=== PATIENT | female | born 1965 | race Caucasian/White ===

== ENCOUNTER 2016-06-15 14:45 | Emergency (ER) | payer MEDICARE, OTHER ==
[2006-03-13 08:37] VITALS: BP 119/79
[~2016-06-15] VITALS: Ht 162.6 cm; Wt 89.1 kg
[~2016-06-15 14:45] MED LIST: ADVAIR 250/28 DISKUS IH; ALDACTONE100 MG PO; ALDACTONE50 MG PO; AMBIEN 10MG10 MG PO; AMBIEN10 MG PO; AMLODIPINE10 MG PO; ATENOLOL50 MG PO; BENTYL 20MG TAB20 MG PO; BENTYL 20MG20 MG/TAB PO; BENTYL20 MG PO; CEFTIN 250250 MG/TAB PO; CEFTIN500 MG PO; CHLORPHENIRAMINE4 MG PO; CLOPIDOGREL; COLACE 100100 MG/CAP PO; COMBIVENT INH14.7 GM IH; COREG12.5 MG PO; COUMADIN 5MG5 MG/TAB PO; CYCLOBENZAPRINE10 MG PO; DAILY VITAMINS1 TAB PO; DESYREL 100MG100 MG PO; DESYREL 50MG50 MG PO; DETROL LA PO; DILANTIN 100MG100 MG PO; DULCOLAX10 MG RC; FIORICET 325 MG1 TA1 PO; FIORICET 325 MG1 TAB PO; FIORICET W/CODE1 CA1 PO; FLEXERIL 1010 MG/TAB PO; FORTAMET1000 MG PO; KEPPRA1000 MG PO; KEPPRA500 MG PO; KLOR-CON M2020 MEQ PO; LEVOTHYROXINE0.1 MG PO; LIDODERM PATCH TP; LIPITOR 40MG TA40 MG PO; LIPITOR40 MG PO; LISINOPRIL PO; MACRODANTIN50 MG PO; MACRODANTIN50 MG/CA1 PO; MAGNESIUM OXID420 MG PO; METHOCARBAMOL500 MG PO; MILK OF MA400 MG/5 M PO; MYLANTA 150 ML150 M1 PO; NEPHRO VITE PO; NEPHROVITE PO; NIFEREX-150 FOR1 CA1 PO; PERCOCET 325 MG1 TA2 PO; PHENERGAN 25 TA25 MG; PHENERGAN 25 TA25 MG PO; PLAVIX 75MG TAB75 MG PO; PRILOSEC 20MG20 MG PO; PROVENTIL 2MG TA2 MG IH; REGLAN 10MG10 MG/TAB PO; REMERON15 M1 PO; RISPERDAL 0.20.25 MG PO; RISPERDAL 0.5M0.5 MG PO; ROBAXIN 75750 MG/TAB PO; SERTRALINE PO; SIMVASTATIN80 MG PO; SYNTHROID 0.10.15 MG PO; SYNTHROID0.125 MG PO; SYNTHROID0.137 MG PO; TYLENOL 325MG325 MG PO; UNABLE; VALIUM 5MG T5 MG/TAB PO; VITAMIN D 50,1.25 MG PO; ZESTRIL 10MG10 MG PO; ZOFRAN8 MG PO; ZOLOFT 100MG100 MG PO
[2016-06-15 14:46] VITALS: TEMP 98.2
[2016-06-15 15:07] LABS: BASO % 0.3 % (0.0-2.0); EOS % 0.2 % (0-4.0); GRAN # 9.9 (1.4-6.5); LYMPH # 1.1 (1.2-3.4); LYMPH % 9.7 % (20.0-51.0); MEAN CELL VOLUME 82 fl (80.0-100.0); MEAN CORPUSCULAR HGB CONC 31 g/dl (33.0-37.0); MONO # 0.5 (0.1-0.6); MONO % 4.4 % (1.7-9.3); PLATELET COUNT 321 K/mm3 (130-400); RED BLOOD COUNT 4.46 M/mm3 (4.10-5.30); REDCELL DISTRIBUTION WIDTH-CV 16.5 % (11.5-14.5); WHITE BLOOD COUNT 11.7 K/mm3 (4.8-10.8)
[2016-06-15 15:10] LABS: HEMATOCRIT 36.7 % (37.0-47.0); HEMOGLOBIN 11.2 g/dl (12.5-16.0); MEAN CORPUSCULAR HEMOGLOBIN 25 pg (27.0-31.0)
[2016-06-15 15:18] LABS: ANION GAP 13 mmol/L (7-16); BLOOD UREA NITROGEN 11 mg/dL (7-17); CALCIUM 9.1 mg/dL (8.4-10.2); CARBON DIOXIDE 21 mmol/L (22-30); CHLORIDE 108 mmol/L (98-107); CREATININE, serum 0.79 mg/dL (0.52-1.25); GLUCOSE 129 mg/dL (74-106); POTASSIUM 3.7 mmol/L (3.4-5.0); SODIUM 142 mmol/L (137-145)
[2016-06-15] MEDS ORDERED: UROMAG140 MG PO (18:08)
[2016-06-15] MEDS ORDERED: DIFLUCAN150 MG PO (18:12)
[2016-06-15] MEDS ORDERED: VITAMIN D1000 IU PO (18:13)
[2016-06-15 18:15] VITALS: BP 155/90; PULSE 97
[2016-06-16] MEDS ORDERED: OMNICEF 300MG300 MG PO (18:41)
== END 2016-06-15 18:15 | disposition home or self-care (01) ==
LOC: COL.ER 14:45
PROVIDERS: Emergency Medicine
DX: R47.81 Slurred speech (principal); I10 Essential (primary) hypertension; Z86.73 Personal history of transient ischemic attack (TIA), and cerebral infarction without residual deficits

== ENCOUNTER 2016-06-16 15:46 | Observation (INO) | payer MEDICARE, OTHER ==
[~2016-06-16] VITALS: Ht 162.6 cm; Wt 88.3 kg
[~2016-06-16 15:46] MED LIST changes: +DIFLUCAN150 MG PO; +UROMAG140 MG PO; +VITAMIN D1000 IU PO
[2016-06-16 16:47] LABS: BASO # 0.1 (0.0-0.2); BASO % 0.5 % (0.0-2.0); EOS # 0.1 (0.0-0.7); EOS % 0.6 % (0-4.0); LYMPH # 1.7 (1.2-3.4); LYMPH % 18.3 % (20.0-51.0); MEAN CELL VOLUME 83 fl (80.0-100.0); MEAN CORPUSCULAR HGB CONC 30 g/dl (33.0-37.0); MONO # 0.5 (0.1-0.6); MONO % 5.2 % (1.7-9.3); PLATELET COUNT 298 K/mm3 (130-400); RED BLOOD COUNT 4.35 M/mm3 (4.10-5.30); REDCELL DISTRIBUTION WIDTH-CV 16.7 % (11.5-14.5); WHITE BLOOD COUNT 9.4 K/mm3 (4.8-10.8)
[2016-06-16 16:49] LABS: HEMATOCRIT 35.9 % (37.0-47.0); HEMOGLOBIN 10.9 g/dl (12.5-16.0); MEAN CORPUSCULAR HEMOGLOBIN 25 pg (27.0-31.0)
[2016-06-16 16:59] LABS: INR 1.1 (0.8-3.0); PROTHROMBIN TIME 12.4 SECONDS (9.7-12.8)
[2016-06-16 17:00] LABS: ACETAMINOPHEN < 10 ug/mL (10-30); ADJUSTED CALCIUM 8.7 mg/dL (8.4-10.2); ALANINE AMINOTRANSFERASE 27 U/L (9-52); ALBUMIN 4.2 gm/dL (3.5-5.0); ALKALINE PHOSPHATASE 191 U/L (50-136); ANION GAP 11 mmol/L (7-16); BILIRUBIN,TOTAL 0.6 mg/dL (0.0-1.0); BLOOD UREA NITROGEN 11 mg/dL (7-17); CALCIUM 8.9 mg/dL (8.4-10.2); CARBON DIOXIDE 25 mmol/L (22-30); CHLORIDE 107 mmol/L (98-107); CREATININE, serum 0.73 mg/dL (0.52-1.25); GLUCOSE 131 mg/dL (74-106); MAGNESIUM 1.4 mg/dL (1.6-2.3); PHOSPHOROUS 1.7 mg/dL (2.5-4.5); POTASSIUM 3.4 mmol/L (3.4-5.0); SALICYLATE < 1.0 mg/dL; SODIUM 143 mmol/L (137-145); TOTAL PROTEIN 7.7 gm/dL (6.4-8.2)
[2016-06-16 17:01] LABS: AMMONIA < 9 umol/L (11-35)
[2016-06-16 17:02] LABS: PARTIAL THROMBOPLASTIN TIME 27.2 SECONDS (26.0-37.0)
[2016-06-16 17:16] LABS: PROLACTIN 40.3 ng/mL (3.0-18.6); TROPONIN-I < 0.012 ng/mL (0.000-0.034)
[2016-06-16 18:03] LABS: PH 5 (5-8); URINE APPEARANCE Hazy; URINE BACTERIA Many /hpf; URINE BILIRUBIN Negative (NEGATIVE); URINE BLOOD Negative (NEGATIVE); URINE COLOR Yellow; URINE GLUCOSE Negative (NEGATIVE); URINE KETONE Trace (NEGATIVE); URINE RBC 0-2 /hpf; URINE UROBILINOGEN Negative (NEGATIVE); URINE WBC >50 /hpf
[2016-06-16 18:20] LABS: AMPHETAMINE URINE NEGATIVE; BARBITURATES URINE POSITIVE; BENZODIAZEPINES URINE POSITIVE; BUPRENORPHINE URINE NEGATIVE; METHADONE URINE NEGATIVE; OPIATES URINE POSITIVE; OXYCODONE URINE NEGATIVE; PHENCYCLIDINE URINE NEGATIVE; PROPOXYPHENE URINE NEGATIVE; THC CANNABINOIDS URINE NEGATIVE
[2016-06-16] MEDS ORDERED: OMNICEF 300MG300 MG PO (18:41)
[2016-06-16 21:14] VITALS: BP 145/79; PULSE 75; TEMP 98.4
[2016-06-16 22:39] LABS: B-TYPE NATRIURETIC PEPTIDE 49 pg/mL (0-125)
[2016-06-16 23:49] VITALS: BP 112/57; PULSE 85; TEMP 97.6
[2016-06-17 03:11] VITALS: BP 132/64; PULSE 87; TEMP 97.3
[2016-06-17] MEDS ORDERED: TESSALON PERLE200 MG PO (05:50)
[2016-06-17] MEDS ORDERED: AMRIX15 MG PO (05:52)
[2016-06-17] MEDS ORDERED: PROLIA60 MG/ML SC (05:53)
[2016-06-17] MEDS ORDERED: PRILOSEC 20MG20 MG PO (05:56)
[2016-06-17] MEDS ORDERED: RESTORIL 1515 MG/CAP PO (05:59)
[2016-06-17] MEDS ORDERED: NORCO 325 MG-51 TAB PO (06:06)
[2016-06-17 07:23] LABS: BASO % 0.5 % (0.0-2.0); EOS # 0.1 (0.0-0.7); EOS % 0.9 % (0-4.0); GRAN # 5.8 (1.4-6.5); GRAN % 68.9 % (42.2-75.2); LYMPH # 1.9 (1.2-3.4); LYMPH % 22.2 % (20.0-51.0); MEAN CELL VOLUME 82 fl (80.0-100.0); MEAN CORPUSCULAR HGB CONC 30 g/dl (33.0-37.0); MEAN PLATELET VOLUME 10.2 fl (7.4-10.4); MONO # 0.6 (0.1-0.6); MONO % 7.1 % (1.7-9.3); PLATELET COUNT 306 K/mm3 (130-400); RED BLOOD COUNT 3.93 M/mm3 (4.10-5.30); REDCELL DISTRIBUTION WIDTH-CV 16.6 % (11.5-14.5); WHITE BLOOD COUNT 8.4 K/mm3 (4.8-10.8)
[2016-06-17 07:27] LABS: HEMATOCRIT 32.4 % (37.0-47.0); HEMOGLOBIN 9.8 g/dl (12.5-16.0); MEAN CORPUSCULAR HEMOGLOBIN 25 pg (27.0-31.0)
[2016-06-17 07:31] LABS: CALCIUM 8.3 mg/dL (8.4-10.2); CREATININE, serum 0.69 mg/dL (0.52-1.25); MAGNESIUM 1.7 mg/dL (1.6-2.3); PHOSPHOROUS 3.1 mg/dL (2.5-4.5); POTASSIUM 3.6 mmol/L (3.4-5.0)
[2016-06-17 08:20] VITALS: BP 150/73; PULSE 78; TEMP 98.6
[2016-06-17 10:25] VITALS: BP 142/71; PULSE 88
[2016-06-17 17:03] VITALS: BP 122/57; PULSE 74; TEMP 98.5
[2016-06-17 19:39] VITALS: BP 142/73; PULSE 89; TEMP 98.4
[2016-06-18 00:15] VITALS: BP 134/61; PULSE 72; TEMP 98.1
[2016-06-18 03:12] VITALS: BP 136/76; PULSE 76; TEMP 98.2
[2016-06-18 07:53] VITALS: BP 138/61; PULSE 78; TEMP 98.3
[2016-06-18 09:33] LABS: CALCIUM 7.6 mg/dL (8.4-10.2); CREATININE, serum 0.6 mg/dL (0.52-1.25); MAGNESIUM 1.8 mg/dL (1.6-2.3); POTASSIUM 5.1 mmol/L (3.4-5.0)
[2016-06-18 11:38] VITALS: BP 130/71; PULSE 74; TEMP 99.3
[2016-06-18] MEDS ORDERED: KEPPRA1000 MG PO (14:39)
[2016-06-18] MEDS ORDERED: OMNICEF 300MG300 MG PO (14:41)
[2016-06-18] MEDS ORDERED: MAG-OX 400400 MG/TAB PO (14:57)
[2016-06-27 14:53] LABS: MG COLLECTION HOURS 24 hr Hr (()); MG TIMED URINE 71 mg/24 hr (73-122); MG URINE 8.9 mg/dL (()); MG URINE VOLUME 800 mL (()); URINE PHOSPHORUS TIMED 712 mg/24hrs (400-1300); URINE PHOSPHORUS mg/L 89 mg/dL (())
== END 2016-06-18 16:28 | disposition home or self-care (01) ==
LOC: COL.ER 15:46 → MEDICAL 19:57
PROVIDERS: Emergency Medicine; Internal Medicine; Nurse Practitioner Family
DX: N39.0 Urinary tract infection, site not specified (principal); B96.20 Unspecified Escherichia coli [E. coli] as the cause of diseases classified elsewhere; G40.909 Epilepsy, unspecified, not intractable, without status epilepticus; I10 Essential (primary) hypertension; E83.39 Other disorders of phosphorus metabolism; E83.42 Hypomagnesemia; E87.6 Hypokalemia; E78.5 Hyperlipidemia, unspecified; J44.9 Chronic obstructive pulmonary disease, unspecified; K58.9 Irritable bowel syndrome, unspecified
CPT/HCPCS: G0378; G8978-GP; G8979-GP; G8987-GO; G8988-GO; J0696; J1650; J1953; J3010; J3475; J7030; J7040

== ENCOUNTER 2016-07-25 11:36 | Inpatient (IN) | payer MEDICARE, OTHER ==
[~2016-07-25] VITALS: Ht 162.6 cm; Wt 95.0 kg
[~2016-07-25 11:36] MED LIST changes: +AMRIX15 MG PO; +MAG-OX 400400 MG/TAB PO; +NORCO 325 MG-51 TAB PO; +OMNICEF 300MG300 MG PO; +PROLIA60 MG/ML SC; +RESTORIL 1515 MG/CAP PO; +TESSALON PERLE200 MG PO
[2016-07-25] MEDS ORDERED: PROTONIX20 MG PO (13:16)
[2016-07-25] MEDS ORDERED: FIORICET 325 MG1 TA1 PO (13:17)
[2016-07-25 13:20] LABS: BASO # 0.1 (0.0-0.2); BASO % 0.4 % (0.0-2.0); EOS % 0.2 % (0-4.0); GRAN # 10.3 (1.4-6.5); GRAN % 77.9 % (42.2-75.2); HEMATOCRIT 37.8 % (37.0-47.0); LYMPH # 1.9 (1.2-3.4); MEAN CELL VOLUME 79 fl (80.0-100.0); MEAN CORPUSCULAR HEMOGLOBIN 24 pg (27.0-31.0); MEAN CORPUSCULAR HGB CONC 31 g/dl (33.0-37.0); MEAN PLATELET VOLUME 10.6 fl (7.4-10.4); MONO # 0.9 (0.1-0.6); PLATELET COUNT 356 K/mm3 (130-400); REDCELL DISTRIBUTION WIDTH-CV 15.9 % (11.5-14.5); WHITE BLOOD COUNT 13.2 K/mm3 (4.8-10.8)
[2016-07-25 13:27] LABS: HEMOGLOBIN 11.7 g/dl (12.5-16.0)
[2016-07-25] MEDS ORDERED: NORCO 325 MG-51 TAB PO (13:33)
[2016-07-25 13:35] LABS: ADJUSTED CALCIUM 8.8 mg/dL (8.4-10.2); ALANINE AMINOTRANSFERASE 19 U/L (9-52); ALBUMIN 4.4 gm/dL (3.5-5.0); ALKALINE PHOSPHATASE 136 U/L (50-136); ANION GAP 17 mmol/L (7-16); BILIRUBIN,TOTAL 0.6 mg/dL (0.0-1.0); BLOOD UREA NITROGEN 22 mg/dL (7-17); CALCIUM 9.1 mg/dL (8.4-10.2); CARBON DIOXIDE 21 mmol/L (22-30); CHLORIDE 107 mmol/L (98-107); CREATININE, serum 0.88 mg/dL (0.52-1.25); GLUCOSE 123 mg/dL (74-106); POTASSIUM 3.6 mmol/L (3.4-5.0); SODIUM 146 mmol/L (137-145); TOTAL PROTEIN 8.1 gm/dL (6.4-8.2)
[2016-07-25 13:42] LABS: ACETAMINOPHEN < 10 ug/mL (10-30); SALICYLATE < 1.0 mg/dL
[2016-07-25] MEDS ORDERED: ROBAXIN 50500 MG/TAB PO (13:47)
[2016-07-25] MEDS ORDERED: COMBIRESP IH (13:48)
[2016-07-25] MEDS ORDERED: PEPCID40 MG PO (13:48)
[2016-07-25 13:56] LABS: PH 5 (5-8); URINE APPEARANCE Cloudy; URINE BACTERIA Many /hpf; URINE BILIRUBIN Negative (NEGATIVE); URINE BLOOD 2+ (NEGATIVE); URINE COLOR Amber; URINE GLUCOSE Negative (NEGATIVE); URINE KETONE 1+ (NEGATIVE); URINE UROBILINOGEN Negative (NEGATIVE); URINE WBC 20-50 /hpf
[2016-07-25 13:58] LABS: AMPHETAMINE URINE NEGATIVE; BARBITURATES URINE POSITIVE; BENZODIAZEPINES URINE POSITIVE; BUPRENORPHINE URINE NEGATIVE; METHADONE URINE NEGATIVE; OPIATES URINE NEGATIVE; OXYCODONE URINE NEGATIVE; PHENCYCLIDINE URINE NEGATIVE; PROPOXYPHENE URINE NEGATIVE; THC CANNABINOIDS URINE NEGATIVE
[2016-07-25 15:30] VITALS: BP 149/92; PULSE 92; TEMP 98.5
[2016-07-25 17:15] LABS: MAGNESIUM 2.2 mg/dL (1.6-2.3)
[2016-07-25 23:34] VITALS: BP 105/43; PULSE 104; TEMP 98
[2016-07-26 03:48] VITALS: BP 169/81; PULSE 85; TEMP 98.4
[2016-07-26 07:23] LABS: BASO % 0.3 % (0.0-2.0); EOS # 0.1 (0.0-0.7); EOS % 0.6 % (0-4.0); GRAN # 11.4 (1.4-6.5); GRAN % 75.2 % (42.2-75.2); LYMPH # 2.6 (1.2-3.4); LYMPH % 17.2 % (20.0-51.0); MEAN CELL VOLUME 81 fl (80.0-100.0); MEAN CORPUSCULAR HGB CONC 31 g/dl (33.0-37.0); MEAN PLATELET VOLUME 10.6 fl (7.4-10.4); MONO % 6.3 % (1.7-9.3); PLATELET COUNT 308 K/mm3 (130-400); RED BLOOD COUNT 4.07 M/mm3 (4.10-5.30); WHITE BLOOD COUNT 15.2 K/mm3 (4.8-10.8)
[2016-07-26 07:26] LABS: HEMATOCRIT 32.8 % (37.0-47.0); MEAN CORPUSCULAR HEMOGLOBIN 25 pg (27.0-31.0)
[2016-07-26 07:44] LABS: CALCIUM 7.8 mg/dL (8.4-10.2); CREATININE, serum 0.67 mg/dL (0.52-1.25); POTASSIUM 3.9 mmol/L (3.4-5.0)
[2016-07-26 08:02] VITALS: BP 126/61; PULSE 98; TEMP 98
[2016-07-26 11:54] VITALS: BP 134/64; PULSE 100; TEMP 97.9
[2016-07-26 15:37] VITALS: BP 148/72; PULSE 110; TEMP 98.1
[2016-07-26 20:02] VITALS: BP 123/67; PULSE 97; TEMP 98.6
[2016-07-27 00:26] VITALS: BP 133/68; PULSE 96; TEMP 97
[2016-07-27 04:56] VITALS: BP 124/74; PULSE 85; TEMP 98.2
[2016-07-27 07:20] VITALS: BP 133/58; PULSE 72; TEMP 97.3
[2016-07-27 11:16] VITALS: BP 110/58; PULSE 80; TEMP 98.1
[2016-07-27 16:34] VITALS: BP 120/61; PULSE 94; TEMP 98.8
[2016-07-27 21:14] VITALS: BP 113/56; PULSE 88; TEMP 98.5
[2016-07-28 00:27] VITALS: BP 113/52; PULSE 80; TEMP 98.4
[2016-07-28 04:27] VITALS: BP 109/54; PULSE 77; TEMP 98.1
[2016-07-28 07:16] VITALS: BP 127/64; PULSE 78; TEMP 98.4
[2016-07-28 12:26] VITALS: BP 115/60; PULSE 84; TEMP 98.4
[2016-07-28] MEDS ORDERED: CEFTIN500 MG PO (14:17)
== END 2016-07-28 15:53 | disposition home health service (06) | DRG 872 ==
LOC: COL.ER 11:36 → MEDICAL 14:14
PROVIDERS: Emergency Medicine; Nurse Practitioner Family
DX: A41.9 Sepsis, unspecified organism (principal); N39.0 Urinary tract infection, site not specified; E87.0 Hyperosmolality and hypernatremia; E03.9 Hypothyroidism, unspecified; G40.909 Epilepsy, unspecified, not intractable, without status epilepticus; I10 Essential (primary) hypertension; J44.9 Chronic obstructive pulmonary disease, unspecified; E78.5 Hyperlipidemia, unspecified; B96.1 Klebsiella pneumoniae [K. pneumoniae] as the cause of diseases classified elsewhere; G47.00 Insomnia, unspecified; F32.9 Major depressive disorder, single episode, unspecified; Z86.73 Personal history of transient ischemic attack (TIA), and cerebral infarction without residual deficits
CPT/HCPCS: 99222-AI; 99231-AI; 99239; A4315; J0696; Q9967

== ENCOUNTER → 2017-06-14 | Outpatient (CLI) | payer MEDICARE, OTHER ==
[~2017-06-14] MED LIST changes: +COMBIRESP IH; +PEPCID40 MG PO; +PROTONIX20 MG PO; +ROBAXIN 50500 MG/TAB PO
== END ==
LOC: COL.LAB 16:54
DX: R60.0 Localized edema (principal)

== ENCOUNTER → 2017-12-22 | Outpatient (CLI) | payer MEDICARE, OTHER | LOC: MC.RAD 13:39 | DX: Z12.31 Encounter for screening mammogram for malignant neoplasm of breast (principal) ==

== ENCOUNTER → 2019-01-03 | Outpatient (CLI) | payer MEDICARE, OTHER | LOC: MC.RAD 12:39 | DX: Z12.31 Encounter for screening mammogram for malignant neoplasm of breast (principal) ==

== ENCOUNTER → 2019-01-25 | Outpatient (CLI) | payer MEDICARE, OTHER | LOC: COL.RAD 10:58 | DX: M86.272 Subacute osteomyelitis, left ankle and foot (principal) ==

== ENCOUNTER → 2019-01-31 | Outpatient (CLI) | payer MEDICARE, OTHER | LOC: COL.RAD 08:39 | DX: M86.272 Subacute osteomyelitis, left ankle and foot (principal) ==

== ENCOUNTER → 2020-03-11 | Outpatient (CLI) | payer MEDICARE, OTHER | LOC: MC.RAD 13:51 | DX: Z12.31 Encounter for screening mammogram for malignant neoplasm of breast (principal) ==

== ENCOUNTER → 2023-06-28 | Outpatient (CLI) | payer MEDICARE, OTHER | LOC: COL.RAD 07:20 | DX: G40.309 Generalized idiopathic epilepsy and epileptic syndromes, not intractable, without status epilepticus (principal); G43.E19 Chronic migraine with aura, intractable, without status migrainosus; O03.9 Complete or unspecified spontaneous abortion without complication; Z86.73 Personal history of transient ischemic attack (TIA), and cerebral infarction without residual deficits ==

== ENCOUNTER 2023-07-26 14:40 | Outpatient (CLI) | payer MEDICARE, OTHER ==
[2006-03-13 08:37] VITALS: BP 119/79
[~2023-07-26] VITALS: Ht 162.6 cm; Wt 90.1 kg
[2023-07-26 15:01] VITALS: BP 103/69; PULSE 60; TEMP 98.7
[2023-07-26] MEDS ORDERED: NORVASC 10MG10 MG PO (15:16)
[2023-07-26] MEDS ORDERED: DEBROX OT (15:17)
[2023-07-26] MEDS ORDERED: COLACE 100100 MG/CAP PO (15:18)
[2023-07-26] MEDS ORDERED: COMBIRESP IH (15:18)
[2023-07-26] MEDS ORDERED: LASIX 20MG TABL20 MG PO (15:19)
[2023-07-26] MEDS ORDERED: PREVACID 15MG15 M1 PO (15:19)
[2023-07-26] MEDS ORDERED: TOPROL XL200 MG PO (15:20)
[2023-07-26] MEDS ORDERED: CLARITIN 1010 MG/TAB PO (15:20)
[2023-07-26] MEDS ORDERED: DIOVAN 80MG80 MG PO (15:21)
[2023-07-26] MEDS ORDERED: VITAMIN D 50,1.25 MG PO (15:22)
[2023-07-26] MEDS ORDERED: Denosumab 60 MG/ML SYRINGE SQ ONE (15:30)
--- NOTE | 2023-07-26 15:35 | NUR ---
PT TOLERATED INJECTION WELL. PT WAS ASSISTED TO MAIN LOBBY VIA WHEELCHAIR. VS REMAINED WITHIN NORMAL LIMITS AND PT FREE FROM ACUTE CONCERNS AND COMPLAINTS AT TIME OF DISCHARGE.
== END 2023-07-26 15:35 | disposition home or self-care (01) ==
LOC: EUO 14:40
DX: M81.0 Age-related osteoporosis without current pathological fracture (principal)
CPT/HCPCS: J0897

== ENCOUNTER → 2024-01-29 | Outpatient (CLI) | payer MEDICARE ==
[~2024-01-29] MED LIST changes: +CLARITIN 1010 MG/TAB PO; +DEBROX OT; +DIOVAN 80MG80 MG PO; +LASIX 20MG TABL20 MG PO; +NORVASC 10MG10 MG PO; +PREVACID 15MG15 M1 PO; +TOPROL XL200 MG PO
== END ==
LOC: COL.RAD 12:27
DX: R30.0 Dysuria (principal); R35.0 Frequency of micturition; R82.998 Other abnormal findings in urine